=== PATIENT | female | born 1970 ===

== ENCOUNTER 2017-03-09 13:09 | Emergency (ER) | payer BC, OTHER ==
[2017-03-09 13:19] VITALS: BP 164/97; PULSE 68; RESP 16; TEMP 98.1; O2SAT 95
--- NOTE | 2017-03-09 13:27 | EDPHY ---
H & P Stated Complaint: 1 week of lip swelling .Denies SOB Time Seen by Provider: 03/09/17 13:21 - Personal History LMP (Females 10-55): Post Menopausal Current Tetanus/Diphtheria Vaccine: Unsure Current Tetanus Diphtheria and Acellular Pertussis (TDAP): Unsure - Medical/Surgical History Hx Asthma: Yes Hx Chronic Respiratory Disease: No Hx Diabetes: No Hx Cardiac Disease: No Hx Renal Disease: No Hx Cirrhosis: No Hx Alcoholism: No Hx HIV/AIDS: No Hx Splenectomy or Spleen Trauma: No Other PMH: allergies. hysterectomy - Social History Smoking Status: Never smoked Constitutional: Initial Vital Signs Temperature (C) 36.7 C 03/09/17 13:13 Heart Rate 68 03/09/17 13:13 Respiratory Rate 16 03/09/17 13:13 Blood Pressure 164/97 H 03/09/17 13:13 O2 Sat (%) 95 03/09/17 13:13 O2 Delivery Mode Room Air Allergies/Adverse Reactions: No Known Allergies Allergy (Unverified 03/09/17 13:19) Home Medications: Medication Instructions Recorded Albuterol PRN 03/09/17 FLUoxetine HCL 03/09/17 Famotidine [Pepcid 20 MG (OTC)] 20 mg PO DAILY #10 tab 03/09/17 Losartan/Hctz 50/12.5 03/09/17 Omeprazole 03/09/17 predniSONE 40 mg PO DAILY #10 tab 03/09/17 Medical Decision Making ED Course/Re-evaluation: CHIEF COMPLAINT: Lip swelling HISTORY OF PRESENT ILLNESS: 46-year-old female who yesterday started developed the swelling of her lips only. Does not involve her tongue or uvula or anywhere else in her mouth. She denies any rashes anywhere. She denies any specific exposure to anything except the fact that they got a new cat over the last couple of months. She had 1 prior episode back in December that was similar and resolved spontaneously. She took a couple of Benadryl but they did not seem to help. Her lips are a bit swollen and red but there is no evidence of blistering or injury. She has been started on no new medications. She has started no new supplements. She has not eaten any foods that she can think of that might have started this. She has had no facial procedures or dental procedures or applied any topical products. REVIEW OF SYSTEMS: A 10 point review of systems was performed and is negative with the exception of the elements mentioned in the history of present illness. PHYSICAL EXAM: HR, BP, O2 Sat, RR. Temp noted General Appearance: Alert, well hydrated, appropriate, and non-toxic appearing. Head: Atraumatic without scalp tenderness or obvious injury Eyes: Pupils equal, round, reactive to light and accommodation, EOMI, no trauma , no injection. Ears: Clear bilaterally, no perforation, normal landmarks Nose: Atraumatic, no rhinorrhea, clear. Throat: This patient has mild to moderate swelling of her upper and lower lips mostly mucosa involvement. The rest of the exam is entirely normal. There is no erythema or exudates, no lesions, normal tonsils, mucus membranes moist. Neck: Supple, 2+ carotid upstroke, nontender, no lymphadenopathy. Respiratory: No retractions, no distress, no wheezes, and no accessory muscle use. Lungs are clear to auscultation bilaterally. Cardiovascular: Regular rate and rhythm, no murmurs, rubs, or gallops. Bilateral carotid, radial, dorsalis pedis, and posterior tibial pulses intact. Good capillary refill all extremities. Gastrointestinal: Abdomen is soft, nontender, non-distended, no masses, no rebound, no guarding, no peritoneal signs. Musculoskeletal: Normal active ROM of all extremities, atraumatic. Neurological: Alert, appropriate, and interactive. The patient has normal DTRs and non-focal cranial nerves, motor, sensory, and cerebellar exam. Skin: No rashes, good turgor, no nodules on palpation. Past medical history: Noncontributory Past surgical history: Noncontributory Family history: Noncontributory Social history: , employed, does not abuse tobacco drugs or alcohol, 1 new cat in the house DIFFERENTIAL DIAGNOSIS: The differential diagnosis included but was not limited to angioedema, anaphylaxis, anaphylactoid reaction, urticarial reaction , and other infectious causes for skin rash. MEDICAL DECISION MAKING: This patient has mild angioedema of the lips only. It is unclear as to what the etiology of the lip swelling is. She is not aware of any new products that she has used, new foods, environmental exposures or anything else. This happened 1 other time a few weeks ago and resolved spontaneously. Benadryl does not seem to help. She has been started on no new medicines. She has taken no new supplements. At this point will treat this patient with prednisone for 5 days. Since this angioedema I believe she will have better resolution with an H2 ebonie than with Benadryl so I have prescribed Pepcid. We will get her followed up with an rock mason. She has never had any breathing difficulty or swallowing difficulty or throat swelling. If anything worsens she will return here immediately. Departure - Departure Disposition: Home, Routine, Self-Care Clinical Impression: Angioedema Qualifiers: Encounter type: initial encounter Qualified Code(s): T78.3XXA - Angioneurotic edema, initial encounter Condition: Good Instructions: Angioedema (ED) Referrals: [facility] [Other] - As per Instructions Ivonne Trammell MD [[facility] [place] Primary Care Provider] - As per Instructions Prescriptions: Famotidine [Pepcid 20 MG (OTC)] 20 mg PO DAILY #10 tab predniSONE 40 mg PO DAILY #10 tab
== END 2017-03-09 13:45 | disposition home or self-care (01) ==
LOC: CED 13:09
DX: T78.3XXA Angioneurotic edema, initial encounter (principal); J45.909 Unspecified asthma, uncomplicated